=== PATIENT | female | born 1995 | race Hispanic/Latino ===

== ENCOUNTER 2024-11-13 08:06 | Emergency (ER) | payer BC ==
[~2024-11-13] VITALS: Ht 165.1 cm; Wt 86.2 kg
[2024-11-13 08:27] VITALS: PULSE 88; RESP 19; TEMP 98.2; O2SAT 100
== END 2024-11-13 09:21 | disposition home or self-care (01) ==
LOC: ER 08:10
DX: M25.561 Pain in right knee (principal); X50.1XXA Overexertion from prolonged static or awkward postures, initial encounter; Y92.89 Other specified places as the place of occurrence of the external cause
CPT/HCPCS: 99284